=== PATIENT | male | born 1945 | race Caucasian/White ===

== ENCOUNTER → 2017-12-18 | Day surgery (SDC) | payer MEDICARE, OTHER, SELFPAY | END | disposition home or self-care (01) | PROVIDERS: PCP Family Medicine; Visit Provider Ophthalmology | DX: H25.12 Age-related nuclear cataract, left eye (principal) | CPT/HCPCS: J2704 ==

== ENCOUNTER → 2019-06-26 08:31 | Outpatient (CLI) | payer MEDICARE, OTHER, SELFPAY ==
[2019-06-26 10:30] LABS: Alanine Aminotransferase 14 IU/L (<50); Albumin Globulin Ratio 1.5 (1.0-2.8); Alkaline Phosphatase 51 U/L (38-126); Aspartate Aminotransferase 23 IU/L (17-59); BUN Creatinine Ratio 27.5 (6-22); Bilirubin Total 0.9 mg/dL (0.2-1.3); Blood Urea Nitrogen 22 mg/dL (9-20); Calcium 9.4 mg/dL (8.4-10.2); Carbon Dioxide 28 mmol/L (22-32); Chloride 103 mmol/L (98-107); Estimated Glomerular Filt Rate > 60.0 mL/min (>60); Globulin 2.7 g/dL (1.7-4.1); Glucose 108 mg/dL (80-110); HEMOLYSIS < 15 (0-50); Sodium 139 mmol/L (137-145); Total Protein 6.7 g/dL (6.3-8.2)
== END ==
PROVIDERS: PCP Family Medicine; Visit Provider General Practice
DX: C18.5 Malignant neoplasm of splenic flexure (principal)
CPT/HCPCS: 36415; 80053

== ENCOUNTER → 2023-02-01 08:13 | Outpatient (CLI) | payer MEDICARE, OTHER, SELFPAY ==
--- NOTE | 2023-02-01 | DI.CT.S_ITS ---
PROCEDURE: CT SINUS SCREEN WO CON INDICATIONS: CHRONIC PANSINUSITIS TECHNIQUE: Noncontrast 3.0 mm axial images acquired from the frontal sinuses to the mid-sella, with coronal and sagittal reformats. For radiation dose reduction, the following was used: automated exposure control, adjustment of mA and/or kV according to patient size. COMPARISON: None. FINDINGS: Image quality: Excellent. Maxillary Sinuses: Right maxillary 1.4 cm retention cyst noted. No remodeling Ethmoid Air Cells: No bony remodeling or destruction. Sinuses are clear. Sphenoid Sinuses: No bony remodeling or destruction. Sinuses are clear. Frontal Sinuses: No bony remodeling or destruction. Sinuses are clear. Ostiomeatal Complexes: Ostiomeatal complexes are patent. No Bertram cells. Miscellaneous: Visualized intra-orbital contents are normal. No mehrdad bullosa or paradoxical turbinate curvature. No nasal septal deviation. IMPRESSION: Right maxillary sinus 1.4 cm retention cyst. Otherwise unremarkable CT of the paranasal sinuses REFERENCE TEXT DELETE FROM FINAL REPORT Anatomic variants predisposing to FESS complications: o Cribriform plate: intact or dehiscent. Keros classification for depth of olfactory fossa (lateral lamella). Type 1: <3 mm deep. Type 2: 3-7 mm deep. Type 3: >7 mm deep. o Lamina papyracea: intact, congenital or post traumatic dehiscence. Prolapse of orbital fat into ethmoid sinuses? Uncinate process contacts the medial orbital wall? o Onodi cells: present or absent. posterosuperior sphenoid sinuses, close proximity to optic canals. o Sphenoid sinus pneumatization patterns: conchal, presellar, or sellar. Extension of pneumatization into anterior clinoid processes? Bony margins of optic nerve and carotid canals: intact, thinned, dehiscent. Locate foramen ovale (axial images), foramen rotundum, and vidian canal. o Anterior ethmoid artery notches: protect (abutting the fovea ethmoidalis), or vulnerable (supraorbital pneumatization above the anterior ethmoid notch). Sinus drainage pathways: * Frontal, anterior ethmoid, and maxillary sinuses drain into anterior ostiomeatal complex: frontal sinus ostia, frontal recess, maxillary sinus ostia, ethmoid infundibulum, hiatus semilunaris, middle meatus. * Sphenoid and posterior ethmoid sinuses drain into sphenoethmoidal recess and superior meatus. Anatomic variants: * Nasal septum: deviation, bone spurs, obstructing inferior turbinates. * Ostiomeatal complex: infraorbital Bertram cells, mehrdad bullosa & mehrdad lamella, paradoxical curvature of middle turbinates (lateral convexity), uncinate cells. * Anterior uncinate process attachment: o Skull base/middle turbinate: frontal recess drains into ethmoid infundibulum first, then middle meatus. o Lamina papyracea/agger nasi: frontal recess drains directly into middle meatus. Disease in recessus terminalis of ethmoid infundibulum may displace uncinate process medially against middle turbinate. * Sphenoid sinus: o Anterior clinoid process, and pterygoid recess pneumatization (between foramen rotundum and Vidian canal). o Onodi cells: posterior ethmoids extending above sphenoid sinuses, in close proximity to optic canals. o Arrested pneumatization: near Vidian canal. * Deanna classification for frontal recess cells: Look first for agger nasi and ethmoid bulla (largest anterior ethmoid cell bordered posteriorly by basal lamella of middle turbinate). o Type 1: single cell above agger nasi. o Type 2: 2 or more cells stacked above agger nasi. o Type 3: single large cell above agger nasi, extending into true frontal sinus. o Type 4: isolated cell inside frontal sinus; does not abut agger nasi. o Supraorbital ethmoid cell: extends from frontal recess, posterior wall is the skull base. Situated behind frontal sinus on axial images. o Frontal bullar cell: cell above ethmoid bulla extending into frontal sinus. o Suprabullar cells: cell above ethmoid bulla, does not extend into frontal sinus. o Interfrontal sinus septal cell: pneumatized frontal sinus septum, asscd with pneumatized talya michael. Frontal recess causes of failed FESS: o Residual frontal recess cells. o Residual superior portion of uncinate process. o Lateralized middle turbinate remnants cause obstruction; medially deviated remnants is a normal postop finding. o Osteoneogenesis from chronic inflammation. o Scarring and inflammatory mucosal thickening: provide thickness measurements. o Recurrent polyposis. Approved by: Anastacio Carranza M.D. on 02/01/2023 at 10:30
== END ==
PROVIDERS: PCP Family Medicine; Referring Provider Otolaryngology; Visit Provider Otolaryngology
DX: J32.4 Chronic pansinusitis (principal); J34.1 Cyst and mucocele of nose and nasal sinus
CPT/HCPCS: 70486

== ENCOUNTER → 2024-03-10 08:27 | Outpatient (CLI) | payer MEDICARE, OTHER, SELFPAY ==
--- NOTE | 2024-03-10 08:29 | DI.MRI.S_ITS ---
PROCEDURE: MR KNEE RT WO CON INDICATIONS: PAIN IN RT KNEE TECHNIQUE: Noncontrast sagittal PD fast spin echo and T2 fast spin echo with fat saturation, sagittal 3-D FLASH with fat saturation; coronal T1 spin echo and PD fast spin echo with fat saturation, and axial PD fast spin echo with fat saturation through the knee. COMPARISON: None. FINDINGS: Image quality: Excellent. Menisci: Peripheral displacement of medial meniscus bowing medial collateral ligament is seen. Vertical and oblique tear involving body and posterior horn of medial meniscus extending to inferior articulating surface. The lateral meniscus is intact. Moderate grade partial-thickness tear involving posterior medial meniscal root ligament is seen. Cruciate ligaments: The anterior cruciate ligament is thickened with intrasubstance T2 hyperintense signal. The posterior cruciate ligament is intact. Medial structures: The medial collateral ligament appears thickened near its femoral insertion with surrounding edema. Visualized portions of the pes anserinus tendons appear normal. No abnormal bursal fluid. Lateral structures: The lateral collateral ligament, long and short heads of the biceps femoris tendon appear intact. Low-grade partial-thickness tear involving popliteus tendon extending to musculotendinous junction is seen. Iliotibial band appears normal. Anterior structures: Distal quadriceps tendinosis and proximal patellar tendinosis is seen. Patellar alignment is normal. No femoral trochlear dysplasia or ventral trochlear prominence. No edema in the infrapatellar fat pad. Bones and cartilage: Moderate tricompartmental osteoarthritis and chondromalacia is seen most notably in medial femoral tibial compartment. No fracture or dislocation. Joint space: There is moderate knee joint fluid. There is a small popliteal cyst measures 2.3 x 1.9 x 6.3 cm in size.. Normal appearing synovial plicae are incidentally noted. IMPRESSION: 1. Vertical and oblique tear involving body and posterior horn of medial meniscus is seen extending to both superior and inferior articulating surfaces. Peripheral displacement of medial meniscus bowing medial collateral ligament with moderate grade partial-thickness tear involving posterior medial meniscal root ligament. The lateral meniscus is intact. 2. Degenerative changes and low-grade intrasubstance partial-thickness tear involving ACL. No ACL rupture. The PCL is intact. 3. Low-grade MCL sprain near its femoral insertion. 4. Distal quadriceps tendinosis and proximal patellar tendinosis. 5. 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 No fracture or dislocation. Moderate joint effusion and a small popliteal cyst as above. No loose bodies. Dictated by: Phil Ordaz M.D. on 03/10/2024 at 15:44 Approved by: Phil Ordaz M.D. on 03/10/2024 at 15:51
== END ==
PROVIDERS: Referring Provider Orthopaedic Surgery; Visit Provider Orthopaedic Surgery
DX: S83.241A Other tear of medial meniscus, current injury, right knee, initial encounter (principal); S83.511A Sprain of anterior cruciate ligament of right knee, initial encounter; S83.411A Sprain of medial collateral ligament of right knee, initial encounter; M17.11 Unilateral primary osteoarthritis, right knee; M94.261 Chondromalacia, right knee; M25.461 Effusion, right knee; M71.21 Synovial cyst of popliteal space [Baker], right knee; M25.561 Pain in right knee
CPT/HCPCS: 73721

== ENCOUNTER → 2024-04-15 14:36 | Outpatient (CLI) | payer MEDICARE, OTHER, SELFPAY ==
--- NOTE | 2024-04-15 14:37 | DI.RAD.S_ITS ---
PROCEDURE: XR DEXA AXIAL SKELETON INDICATIONS: AGE RELATED OSTEOPOROSIS COMPARISON: None. FINDINGS: Lumbar Spine (L1 excluded due to increased density): Bone mineral density 1.088 g/cm2, T score 0.1, normal. Left Hip: Bone mineral density 0.942 g/cm2, T score 0, normal. Left Femoral Neck: Bone mineral density 0.747 g/cm2, T score -0.9, normal. Right Hip: Bone mineral density 0.926 g/cm2, T score -0.1, normal. Right Femoral Neck: Bone mineral density 0.760 g/cm2, T score -0.8, normal. Fracture Risk Calculation (when applicable): Not reported due to normal bone mineral density. (T score greater or equal to -1.0 to: NORMAL) (T score from -1.1 to -2.4: OSTEOPENIA) (T score less than or equal to -2.5: OSTEOPOROSIS) IMPRESSION: Normal bone mineral density. Follow-up guidelines as follows: Osteoporosis: Consider a repeat DEXA and Vertebral Fracture Assessment (VFA) exam in 2 years or sooner if medically necessary, to reassess this patient's status. Osteopenia: Consider a repeat DEXA in 2-3 years to reassess this patient's status, or if there is a new clinical indication. Normal: Consider a repeat DEXA in 5 years or sooner, or if there is a new clinical indication. All treatment decisions require clinical judgment and consideration of individual patient factors, including patient preferences, comorbidities, previous drug use, risk factors not captured in the FRAX model (e.g., frailty, falls, vitamin D deficiency, increased bone turnover, interval significant decline in bone density ) and possible under- or over-estimation of fracture risk by FRAX. In addition, the NOF Guide recommends that FDA-approved medical therapies be considered in postmenopausal women and men age >= 50 years with a: * Hip or vertebral (clinical or morphometric) fracture * T-score of <=-2.5 at the spine or hip * Ten-year fracture probability by FRAX of >= 3% for hip fracture or >=20% for major osteoporotic fracture. People with diagnosed cases of osteoporosis or at high risk for fracture should have regular bone mineral density tests. For patients eligible for Medicare, routine testing is allowed once every 2 years. The testing frequency can be increased to one year for patients who have rapidly progressing disease, those who are receiving or discontinuing medical therapy to restore bone mass, or have additional risk factors. Dictated by: Dario Wallace M.D. on 04/15/2024 at 17:00 Approved by: Dario Wallace M.D. on 04/15/2024 at 17:01
== END ==
LOC: RAD 14:37
PROVIDERS: PCP Family Medicine; Referring Provider Family Medicine; Visit Provider Family Medicine
DX: M81.0 Age-related osteoporosis without current pathological fracture (principal)
CPT/HCPCS: 77080

== ENCOUNTER → 2024-05-04 07:39 | Outpatient (CLI) | payer MEDICARE, OTHER, SELFPAY ==
[2024-05-04 09:11] LABS: Add Manual Diff / Slide Review NO; Basophils Absolute Auto 0 /uL (0-100); Basophils Percent Auto 0.7 % (0-2); Eosinophils Absolute Auto 200 /uL (0-450); Eosinophils Percent Auto 3.4 % (2-4); Hematocrit 40.9 % (41-53); Hemoglobin 14.3 g/dL (13.5-17.5); Lymphocytes Absolute Auto 700 /uL (1100-4500); Lymphocytes Percent Auto 13.8 % (25-40); Mean Corpuscular Hemoglobin 33.6 PG (26-34); Mean Corpuscular Volume 95.9 fL (80-100); Monocytes Absolute Auto 700 /uL (0-900); Monocytes Percent Auto 15.2 % (3-14); Neutrophils Absolute Auto 3200 /uL (1500-7000); Neutrophils Percent Auto 66.9 % (50-75); Platelet Count 244 X10^3/uL (150-400); Red Blood Cell Count 4.26 X10^6/uL (4.5-5.9); Red Cell Distribution Width 12.6 % (11.6-14.8); White Blood Cell Count 4.8 X10^3/uL (4.5-11.0)
[2024-05-04 09:21] LABS: Hemoglobin A1C% w Est Avg Glu 5.5 % (4.0-6.0)
[2024-05-04 10:16] LABS: BUN Creatinine Ratio 27.8 (6-22); Blood Urea Nitrogen 22 mg/dL (9-20); Calcium 9.3 mg/dL (8.4-10.2); Carbon Dioxide 26 mmol/L (22-32); Chloride 102 mmol/L (98-107); Estimated Glomerular Filt Rate > 60 mL/min (>60); Glucose 93 mg/dL (80-110); HEMOLYSIS < 15 (0-50); Potassium 4.2 mmol/L (3.4-5.1); Sodium 133 mmol/L (137-145)
[2024-05-04 10:33] LABS: Appearance Urine UA CLEAR; Bilirubin Urine UA NEGATIVE (NEGATIVE); Color Urine UA YELLOW; Glucose Urine UA NEGATIVE (Negative); Ketones Urine UA NEGATIVE (NEGATIVE); Leukocyte Esterase Urine UA NEGATIVE (NEGATIVE); Nitrite Urine UA NEGATIVE (Negative); Occult Blood Urine UA NEGATIVE (Negative); Protein Urine UA NEGATIVE (Negative); Specific Gravity Urine UA 1.025 (1.000-1.035); Urobilinogen Urine UA 0.2 E.U./dL (0.2); pH Urine UA 5.5 (4.5-8.0)
[2024-05-04 10:39] LABS: Bacteria Urine Occasional (0-1); RBC Urine 0-1/HPF (0-5/HPF); Squamous Epithelial Cell Urine 0-1 /HPF (0-5/HPF); Urine Volume 10mL (spun); WBC Urine 0-1/HPF (0-5/HPF)
[2024-05-04 10:40] LABS: Culture Indicated Urine Cult Not Indicated
== END ==
LOC: LAB 07:42
PROVIDERS: PCP Family Medicine; Referring Provider Orthopaedic Surgery; Visit Provider Orthopaedic Surgery
DX: Z01.812 Encounter for preprocedural laboratory examination (principal); R73.9 Hyperglycemia, unspecified; N39.0 Urinary tract infection, site not specified
CPT/HCPCS: 36415; 80048; 81001; 83036; 85025

== ENCOUNTER 2025-03-11 07:27 | Emergency (ER) | payer OTHER, MEDICARE, SELFPAY ==
[2025-03-11 07:33] VITALS: BP 153/80; PULSE 67; RESP 16; TEMP 36.2; O2SAT 98; BMI 23.5
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
[2025-03-11 08:22] VITALS: BP 132/73; PULSE 64; RESP 18; O2SAT 99
== END 2025-03-11 08:23 | disposition home or self-care (01) ==
PROVIDERS: Emergency Provider Emergency Medicine; PCP Family Medicine
DX: S61.211A Laceration without foreign body of left index finger without damage to nail, initial encounter (principal); W26.0XXA Contact with knife, initial encounter
CPT/HCPCS: 12002; 99283